=== PATIENT | male | born 1990 | race Caucasian/White ===

== ENCOUNTER 2018-04-09 12:05 | Inpatient (IN) ==
[2018-04-09] MEDS ORDERED: Aluminum/Magnesium/Simethacone Susp 30 ML UDC PO PRN (15:15)
[2018-04-09] MEDS ORDERED: Acetaminophen 325 MG Tablet PO PRN (15:15)
[2018-04-09] MEDS ORDERED: Melatonin 5 MG Tablet PO PRN (15:15)
[2018-04-10 09:00] LABS: Baso % (Auto) 0.2 % (0.0-2.0); Eos # (Auto) 0.2 th/mm3 (0.0-0.4); Eos % (Auto) 2.1 % (0.0-4.0); Hematocrit 42.4 % (39.0-51.0); Hemoglobin 14.4 gm/dL (13.0-17.0); Lymph # (Auto) 1.5 th/mm3 (1.0-4.8); Mean Corpuscular HGB Conc 33.9 % (32.0-36.0); Mean Corpuscular Hemoglobin 30.3 pg (27.0-34.0); Mean Corpuscular Volume 89.5 fL (80.0-100.0); Mean Platelet Volume 8.7 fL (7.0-11.0); Mono # (Auto) 0.6 th/mm3 (0.0-0.9); Mono % (Auto) 8.3 % (0.0-8.0); Neut # (Auto) 5.3 th/mm3 (1.8-7.7); Neut % (Auto) 69.4 % (16.0-70.0); Platelet Count 268 th/mm3 (150-450); Red Blood Count 4.74 mil/mm3 (4.50-5.90); Red Cell Distribution Width 13.7 % (11.6-17.2); White Blood Count 7.6 th/mm3 (4.0-11.0)
[2018-04-10 09:28] LABS: Albumin 3.4 g/dL (3.4-5.0); Anion Gap 11 meq/L (5-15); Blood Urea Nitrogen 14 mg/dL (7-18); Calcium 8.7 mg/dL (8.5-10.1); Carbon Dioxide 25.9 meq/L (21.0-32.0); Chloride 103 meq/L (98-107); Glomerular Filtration Rate Greater Than 89 mL/min (>89); Glucose,Random 162 mg/dL (74-106); Sodium 140 meq/L (136-145)
[2018-04-10 09:30] LABS: Alanine Aminotransferase 23 U/L (12-78); Aspartate Aminotransferase 12 U/L (15-37); Cholesterol 162 mg/dL (120-200); Triglycerides 146 mg/dL (42-150)
[2018-04-10 09:40] LABS: Alkaline Phosphatase 69 U/L (45-117); Chol/HDL Ratio 3.21 Ratio; HDL Cholesterol 50.4 mg/dL (40.0-60.0); LDL Cholesterol,Calculated 82 mg/dL (0-99); Total Protein 6.8 g/dL (6.4-8.2)
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
[2018-04-10] MEDS ORDERED: Dextrose 50% in Water 50 ML Vial IV.PUSH PRN (10:58)
[2018-04-10] MEDS: Sertraline 50 MG Tablet PO SCH (13:07)
[2018-04-10] MEDS: Insulin NovoLOG Aspart Correctional Sugar Inj SQ SCH ×2 (13:08→16:38)
--- NOTE | 2018-04-10 13:19 | P.CON ---
History of Present Illness Service: Hospitalist Consult date: 04/10/18 Requesting Physician: Aaron Barnhart Reason for Consult: Assist with ongoing medical management Primary Care Provider: UNKNOWN History of Present Illness: This is a 27-year-old male with a past medical history significant for depression, learning disability, diabetes and seizure disorder who was a transfer from [facility] under North act to [facility] psychiatry. Hospitalist services have been consulted to assist with ongoing medical management. Apparently, patient ran out of his antidepressive medication in March. He reportedly told the ED provider at the other facility that he was experiencing depression and suicidal ideation with a plan to jump into traffic. Patient seen and examined. Patient denies any acute medical complaints. Patient states that he was diagnosed with diabetes in 2001. He was on metformin for a while and when he was eventually transitioned to subcutaneous insulin in 2008. He states in 2015 he began managing his diet more appropriately and exercising and as a result no longer requires any diabetic medications. He says that he had his A1c checked in March and was around 5. He has a history of epilepsy since childhood but states he has not had a seizure since 2012. He was previously followed by a neurologist but states he has not been on any seizure medications for many years. He also reports a history of high blood pressure and was previously on lisinopril but was taken off by his physician in [place] a long time ago. He was also on simvastatin for high hypercholesterolemia but was taken off that medication as well. He reports some mild cough which he thinks is due to allergies. He denies any sputum production. Denies any fever or chills. He denies any chest pain or shortness of breath. He denies any nausea, vomiting or abdominal pain. He states he is urinating without any difficulties and denies any diarrhea or constipation. Review of Systems All other systems reviewed negative except as stated in HPI [facility] - History History Provided By: Patient - Medical History Medical History: Medical History (Last Reviewed 04/10/18 @ 13:09 by Hilda Acevedo) Depression Diabetes Hypertension Seizure Suicidal ideation - Surgical History Surgical History: Surgical History (Last Reviewed 04/10/18 @ 13:09 by Hilda Acevedo) No history of previous surgery - Family History Family History: Family History (Last Updated 04/10/18 @ 13:08 by Hilda Acevedo) Other Diabetes Hypercholesteremia - Social History I have reviewed the patient's Social History: Yes - Tobacco History Second Hand Smoke Exposure: No Tobacco Use In Past 30 Days: No Smoking Status: Never smoker - Alcohol History How Often Do You Have a Drink Containing Alcohol: Never - Substance Use History Substance History: No History of Abuse - Travel History Recent Travel in the USA Within the Last 8 Weeks: No Recent Travel Out of the Country Within the Last 8 Weeks: No - Immunization History Tetanus Immunization: <5 Years Hx Influenza Vaccine This Season: No Medications and Allergies Active Medications: Active Medications Acetaminophen (Tylenol) 650 mg PO Q4H PRN PRN Reason: Pain 1-5 or Temp >101F Al Hydrox/Mg Hydrox/Simethicone (Mag-Al Plus Susp Liq) 30 ml PO Q6H PRN PRN Reason: DYSPEPSIA Al Hydroxide/Mg Hydroxide (Milk Of Magnesia Liq) 30 ml PO Q12H PRN PRN Reason: Mild Constipation Dextrose (D50w Vial) 50 ml IV.PUSH UNSCH PRN PRN Reason: PER HYPOGLYCEMIA PROTOCOL Glucagon (Glucagon Inj) 1 mg OTHER PRN PRN PRN Reason: for Hypoglycemia Protocol Hydroxyzine HCl (Atarax) 50 mg PO Q6H PRN PRN Reason: ANXIETY Insulin Aspart (Novolog Insulin Correctional Sugar Inj) 0 unit SQ ACHS WILNER; Protocol Lorazepam (Ativan Inj) 2 mg IM Q4H PRN PRN Reason: SEIZURES Melatonin (Melatonin) 5 mg PO HS PRN PRN Reason: INSOMNIA Nicotine (Habitrol 21 Mg Patch.24 Hr) 1 patch T-DERMAL DAILY PRN PRN Reason: Nicotine craving Patch Removal (Remove Old Patch) 1 each T-DERMAL DAILY WILNER Last Admin: 04/10/18 08:15 Dose: Not Given Sertraline HCl (Zoloft) 50 mg PO DAILY WILNER Allergies Allergy/AdvReac Type Severity Reaction Status Date / Time Penicillins Allergy Severe Hives Verified 04/10/18 00:44 Physical Exam Vital signs: Vital Signs 04/09/18 21:55 04/10/18 06:00 Temperature 98 F 97.6 F Pulse Rate 70 70 Respiratory Rate 17 16 Blood Pressure 120/71 127/68 Pulse Oximetry 97 96 Intake & Output 04/09/18 04/10/18 04/10/18 18:59 06:59 18:59 Weight 96.7 kg Other: Weight On Admission 96.7 kg Narrative: GENERAL: WDWN male patient, INAD. Awake and alert. Noted to be ambulating in the hallway without any difficulties. Nurse is at the bedside, blood sugar obtained just after patient finished lunch and was 91. Appears to have mild MR. SKIN: Warm and dry. No generalized rash. HEAD: Atraumatic. Normocephalic. EYES: Pupils equal and round. No scleral icterus. No injection or drainage. ENT: No nasal bleeding or discharge. Mucous membranes pink and moist. NECK: Trachea midline. CARDIOVASCULAR: Regular rate and rhythm. RESPIRATORY: No accessory muscle use. Clear to auscultation. Breath sounds equal bilaterally. GASTROINTESTINAL: Abdomen soft, non-tender, nondistended. +BS. MUSCULOSKELETAL: Extremities without clubbing, cyanosis, or edema. No obvious deformities. NEUROLOGICAL: Awake and alert. No obvious cranial nerve deficits. Motor grossly within normal limits. Five out of 5 muscle strength in the arms and legs. Normal speech. PSYCHIATRIC: Calm and cooperative. Results - Labs CBC & Chem 7: 04/10/18 08:29 04/10/18 08:29 Assessment and Plan - Plan 27yo male admitted to inpatient psychiatry: Depression Suicidal ideation Hx of learning disability -management per psychiatric team Hx of diabetes blood sugars have been very well controlled Patient states his diabetes has been well controlled with diet modification. He says he last A1c in Mar was around 5. -We will continue to trend Accu-Cheks and if blood sugars remain low will likely discontinue -Obtain hemoglobin A1c -Continue on diabetic diet Hx of seizure disorder Patient states he has not had any seizure activity since 2012 and is not on any seizure medications -EEG has been ordered by the primary team. We will follow up on results but suspect it will be unremarkable. -seizure precautions -monitor DVT prophylaxis -patient is ambulatory Thank you very kindly for this consultation. Patient appears stable from hospitalist standpoint. [facility] will sign off. Please reconsult if needed. Discussed Condition With: patient, nursing staff, Dr. Ramirez
[2018-04-10 15:51] LABS: Hemoglobin A1c 5.3 % (4.3-6.0)
--- NOTE | 2018-04-10 21:58 | MG ---
cc: Andrew Aguila MD, PhD TEST NUMBER: [id number] TECHNIQUE: A 17-channel EEG. DESCRIPTION: Background rhythm reveals a symmetrical alpha rhythm, frequency 8-10 Hz, amplitude 30 microvolts. During drowsiness, there is mild slowing in the theta range. No epileptiform discharges are present. No lateralizing features are seen. Hyperventilation was done, but no change in the background rhythm was seen. Photic results in a normal driving response. INTERPRETATION: Normal electroencephalogram. Andrew Aguila MD, PhD GABE/bhanu , 09:25 PM , 09:28 PM
[2018-04-11] MEDS: Sertraline 50 MG Tablet PO SCH (08:19)
--- NOTE | 2018-04-11 12:13 | P.PN ---
Subjective Interval history: Follow up on patient with hx of DM, seizure d/o. Patient seen and examined. Patient denies any complaints. He denies any seizure activity. Discussed A1c level of 5.3. Patient would like to try regular diet. He is agreeable to continuing with accucheks while on regular diet. EEG was neg. Physical Exam Vital signs: Vital Signs 04/10/18 18:09 04/11/18 06:26 Temperature 98.2 F 97.8 F Pulse Rate 87 68 Respiratory Rate 17 17 Blood Pressure 138/74 105/57 L Pulse Oximetry 99 97 Narrative: GENERAL: WDWN male patient, INAD. Awake and alert. Ambulating in the hallway without any difficulties. SKIN: Warm and dry. No generalized rash. HEENT: Atraumatic. Normocephalic. Pupils equal and round. No scleral icterus. No injection or drainage. No nasal bleeding or discharge. Mucous membranes pink and moist. NECK: Trachea midline. CARDIOVASCULAR: Regular rate and rhythm. RESPIRATORY: No accessory muscle use. Clear to auscultation. Breath sounds equal bilaterally. GASTROINTESTINAL: Abdomen soft, non-tender, nondistended. +BS. MUSCULOSKELETAL: Extremities without clubbing, cyanosis, or edema. No obvious deformities. NEUROLOGICAL: Awake and alert. No obvious cranial nerve deficits. Motor grossly within normal limits. Five out of 5 muscle strength in the arms and legs. Normal speech. PSYCHIATRIC: Calm and cooperative. Results - Labs CBC & Chem 7: 04/10/18 08:29 04/10/18 08:29 Laboratory Results - last 24 hr 04/10/18 04/10/18 04/10/18 08:29 12:46 16:35 POC Glucose 91 99 Hemoglobin A1c 5.3 04/10/18 04/11/18 20:58 11:18 POC Glucose 101 89 Hemoglobin A1c Assessment and Plan - Plan 27yo male admitted to inpatient psychiatry: Depression Suicidal ideation Hx of learning disability -management per psychiatric team Hx of diabetes blood sugars have been very well controlled Patient states his diabetes has been well controlled with diet modification. He says he last A1c in Mar was around 5. A1c 5.3 -Change to regular diet. Doubt patient has been adhering to diabetic diet prior to admission as he is homeless and A1c is WNL. -We will continue to trend Accu-Cheks and if blood sugars remain low will likely discontinue. Hx of seizure disorder Patient states he has not had any seizure activity since 2012 and is not on any seizure medications -EEG unremarkable -seizure precautions -monitor DVT prophylaxis -patient is ambulatory Discussed Condition With: patient, nursing staff, Dr. Ramirez
--- NOTE | 2018-04-11 12:56 | P.PNPSY ---
Subjective Chief Complaint: [place] Act Remarks: Patient was seen and case discussed with nursing. Patient is pleasant and cooperative with exam. We discussed the prospects of him getting a job and patient was resistant and said he preferred to walk the streets in [place]. He is behaving well on the unit and is compliant with his medications. He did take a shower. Interacting with others. He does deny suicidal or homicidal ideation intent or plan Mental Status Examination Appearance: Appropriate Consciousness: Alert Orientation: x4 Motor Activity: Normal gait Speech: Speech impediment Language: Other (Somewhat limited language skills) Fund of Knowledge: Adequate Attention and Concentration: Adequate Memory: Unremarkable (Grossly intact on clinical exam) Mood: Sad Affect: Other (dysphoric) Thought Process & Associations: Circumstantial Thought Content: Appropriate Hallucination Type: None Delusion Type: None Suicidal Ideation: No Suicidal Plan: No Suicidal Intention: No Homicidal Ideation: No Homicidal Plan: No Homicidal Intention: No Insight: Fair Judgment: Impulsive Assessment and Plan - Assessment (1) Adjustment disorder with depressed mood Code(s): F43.21 - Adjustment disorder with depressed mood Status: Acute - Plan Plan: Continue current treatment plan Justification for Continued Inpatient Stay: Patient would decompensate in a less restrictive setting Request Healthcare Surrogate/Guardian Advocate?: No
[2018-04-11] MEDS ORDERED: Dextrose 50% in Water 50 ML Vial IV.PUSH PRN (13:19)
[2018-04-11] MEDS: Insulin NovoLOG Aspart Correctional Sugar Inj SQ SCH (21:00)
[2018-04-12] MEDS: Insulin NovoLOG Aspart Correctional Sugar Inj SQ SCH ×4 (04:46→18:00)
[2018-04-12] MEDS: Sertraline 50 MG Tablet PO SCH (08:43)
--- NOTE | 2018-04-12 10:51 | P.PNPSY ---
Subjective Chief Complaint: North Act Remarks: Medical record reviewed and discussed with nursing staff. Patient in common area. Rounded with IVET Michael. Patient states that he has intellectual disability and has been on disability until a few years ago. He was under the care of his mother who three years ago. Since she his family has not wanted to help him so he has been homeless. He endorses several admissions to [facility] in [place] for suicidal ideations. He states that he has been living on the [address] with no money and survives by going to the "[place] where they feed the homeless." He states that he has tried to get a job in the past but he has no skills and cannot concentrate. States, " I cannot work because I fail." He was very emotional and crying as his mother on April 29. He is very worried because when he was placed under a North Act he was sent to [facility] and he is not familiar with this area. He states that if you put me back on the streets in [place] I know where people will give me food. Denies SI/HI. Review of Systems All other systems reviewed negative except as stated in HPI Mental Status Examination Appearance: Appropriate Consciousness: Alert Orientation: x4 Motor Activity: Normal gait Speech: Speech impediment Language: Other (Somewhat limited language skills) Fund of Knowledge: Adequate Attention and Concentration: Adequate Memory: Unremarkable (Grossly intact on clinical exam) Mood: Sad Affect: Other (dysphoric) Thought Process & Associations: Circumstantial Thought Content: Appropriate Hallucination Type: None Delusion Type: None Suicidal Ideation: No Suicidal Plan: No Suicidal Intention: No Homicidal Ideation: No Homicidal Plan: No Homicidal Intention: No Insight: Fair Judgment: Impulsive Assessment and Plan - Assessment (1) Intellectual disability Code(s): F79 - Unspecified intellectual disabilities Status: Acute (2) Adjustment disorder with depressed mood Code(s): F43.21 - Adjustment disorder with depressed mood Status: Acute - Plan Plan: Continue current treatment plan Justification for Continued Inpatient Stay: Moving patient to a less restrictive environment may result in his decompensation. Request Healthcare Surrogate/Guardian Advocate?: No
[2018-04-12 16:05] VITALS: O2SAT 96
[2018-04-13 06:14] VITALS: BP 109/62; PULSE 61; RESP 17; TEMP 98
[2018-04-13] MEDS: Insulin NovoLOG Aspart Correctional Sugar Inj SQ SCH ×2 (06:30)
[2018-04-13] MEDS: Sertraline 50 MG Tablet PO SCH (08:25)
--- NOTE | 2018-04-13 09:17 | P.DSPSY ---
Psychiatry Discharge Summary Inpatient Psychiatric care?: Yes Advance Directives: No Reason for Unknown:: Other Other Reason for Unknown: NONE PROVIDED Mental Health Advance Directive: No Health Care Proxy: No - Admission Admission Date: April 09, 2018 21:55 Brief History: Mr. Guy is a 27-year-old male with a reported history of depression and learning disability who presents in transfer from [facility] under a North act. Documentation from outside hospital reviewed. Patient told the ED provider that he was experiencing depression and suicidal ideation times 1 day with plans to jump into traffic. Reviewing our electronic medical record , I see no previous psychiatric contact within our system. Patient seen and examined with nurse and counselor. Chart reviewed. Case discussed with nursing staff. On my exam, patient presents as somewhat childlike with some narcissistic and mixed cluster B personality traits. He is somewhat passive aggressive, and there is a somewhat manipulative quality to his presentation. Some degree of malingering, possibly for snf, cannot be ruled out. He tells us that he likes to be left to speak uninterrupted and does not like when clinicians try to focus the interview or change the subject. He says that when he has met with other clinicians in the past, he feels like they are not listening to him, and this leads him to believe that they are just focused on their paycheck. He is indeed a fairly prolix historian. He tells me that he has been feeling depressed and that he did indeed have some SI prior to admission, although he does not describe any SI now. He says that he would never actually hurt himself because he wants to live for his family, video games and his level of wrestling. Otherwise, he is fairly vague with respect to current psychiatric symptoms. For example, when I ask if he is experiencing any AVH, he replies "I go based on whatever vibe I get from the person" with whom he is sleeping. He does not appear to be responding to internal stimuli. No delusions. No hypomanic/manic symptoms. Remainder of the psychiatric ROS is negative. No acute physical complaints. Tobacco Use In Past 30 Days: No How Often Do You Have a Drink Containing Alcohol: Never Hospital Course: Patient was admitted to a locked, inpatient psychiatric unit. A general medical consultation was obtained. Appropriate precautions were in place throughout patient's hospital stay. Patient was seen and examined on the unit by psychiatry and also visited by counselor. Psychotropic medications were adjusted. Patient tolerated medication changes well without side effects. There was no evidence of any suicidality or homicidality on the inpatient unit. There was no evidence of self-care deficit. On the day of discharge: Patient seen and examined with nurse. Chart reviewed. EEG read as normal. Case discussed with nursing staff. No behavioral issues noted overnight. On my examination today, the patient feels ready for discharge from the inpatient psychiatric unit. He denies any suicidal or homicidal ideation, intent or plan. Patient reports that his mood is improved versus admission, and I can elicit no severe depressive or hypomanic/manic symptoms. Patient is reportedly sleeping and eating well. He denies any audiovisual hallucinations. In particular he denies any command auditory hallucinations to hurt self/others. I can elicit no delusional beliefs. He denies side effects from medications and feels that the Zoloft is working. He has no physical complaints. Suicide and violence risk assessment on day of discharge both suggest lower imminent risk from mental illness, and the patient's level of function is adequate for outpatient care. The patient has no acute risk factors: No suicidal or homicidal ideation currently, no severe depressive illness, no impairment in reality construction, no substance intoxication. We will bolster the patient's protective factors by referring him for outpatient mental health services. I have counseled the patient to abstain from substances of abuse. I have counseled the patient regarding warning signs for need to return to the psychiatric emergency room as part of a general safety plan. With the benefit of observation on the inpatient unit, some degree of malingering for snf is possible in the present case. - Discharge Discharge Date: 04/13/18 - Discharge Diagnosis (1) Adjustment disorder with depressed mood Diagnosis: Principal (resolved) Code(s): F43.21 - Adjustment disorder with depressed mood Status: Acute Discharge Disposition: Home - Discharge Instructions Discharge Diet: Regular Diet Activities You Can Perform: Weight Bearing As Tolerat - Discharge Time <= 30 minutes Mental Status Examination Appearance: Appropriate Consciousness: Alert Orientation: x4 Motor Activity: Normal gait, Other (No motor abnormalities noted) Speech: Speech impediment Language: Adequate Fund of Knowledge: Adequate Attention and Concentration: Adequate Memory: Unremarkable (Grossly intact on clinical exam) Mood: Appropriate Affect: Appropriate Thought Process & Associations: Intact, Logical, Goal directed, Linear Thought Content: Appropriate Hallucination Type: None Delusion Type: None Suicidal Ideation: No Suicidal Plan: No Suicidal Intention: No Homicidal Ideation: No Homicidal Plan: No Homicidal Intention: No Mental Status Exam Remarks: Insight and judgment are perhaps fair Discharge/Advance Care Plan - Results Vital Signs: Last Vital Signs Temp 98 F 04/13/18 06:00 Pulse 61 04/13/18 06:00 Resp 17 04/13/18 06:00 BP 109/62 04/13/18 06:00 Pulse Ox 96 04/13/18 06:00 Lab Results: Laboratory Results Hemoglobin A1c 5.3 % (4.3-6.0) 04/10/18 08:29 Triglycerides 146 mg/dL (42-150) 04/10/18 08:29 Cholesterol 162 mg/dL (120-200) 04/10/18 08:29 LDL Cholesterol, Calc 82 mg/dL (0-99) 04/10/18 08:29 HDL Cholesterol 50.4 mg/dL (40.0-60.0) 04/10/18 08:29 TSH 1.950 uIU/mL (0.358-3.740) 04/10/18 08:29 Summary of Procedures: EEG read as normal. Pending Results: None - Medications Number of antipsychotic medications at discharge: 0 - Discharge Care Plan Goals to Promote Your Health: * To prevent worsening of your condition and complications * To maintain your health at the optimal level Directions to Meet Your Goals: Take your medications as prescribed Follow your dietary instruction Follow activity as directed Keep your appointments as scheduled Take your immunizations and boosters as scheduled If your symptoms worsen call your PCP, if no PCP go to Urgent Care Center or Emergency Room For 23/12 questions related to your inpatient stay or results of tests pending at discharge, please contact Dr. Aaron Barnhart MD at [phone] Smoking is Dangerous to Your Health. Avoid second hand smoking
== END 2018-04-13 12:20 | disposition home or self-care (01) ==
LOC: H270 21:55
PROVIDERS: ADMIT Psychiatry & Neurology Psychiatry; ATTEND Psychiatry & Neurology Psychiatry